=== PATIENT | female | born 1980 | race African-American/Black ===

== ENCOUNTER 2018-10-22 03:13 | Observation (INO) | payer OTHER, SELFPAY ==
[2018-10-22 03:58] LABS: INR-International Normal Ratio 1.1; PTT 24.2 SEC (22.9-36.1); Prothrombin Time 13.7 SEC (12.0-14.7)
[2018-10-22 04:08] LABS: Band 2 % (5-11); Hemoglobin 10.5 g/dL (12.0-16.0); Hypochromia SLIGHT = 6-15 cells (100X) (0-5/hpf); Lymphocytes 51 % (21-51); MDiff Complete? YES; Mean Corpuscular Hemoglobin 22.3 pg (27.0-31.0); Mean Corpuscular Volume 74.3 fL (78.0-98.0); Mean Platelet Volume 9.3 fL (7.4-10.4); Microcytosis SLIGHT = 6-15 cells (100X) (0-5/hpf); Monocytes 6 % (0-10); Neutrophil 41 % (42-75); Platelet Count 286 thou/uL (130-400); Platelet Morphology Comment Appears Adequate; RBC Distribution Width 16.1 % (11.5-14.5); White Blood Cell (WBC) Count 7.2 thou/uL (4.8-10.8)
[2018-10-22 04:13] LABS: ALT (SGPT) 11 U/L (8-55); AST (SGOT) 24 U/L (5-34); Albumin 3.8 g/dL (3.5-5.0); Alkaline Phosphatase 74 U/L (40-150); Anion Gap 13 mmol/L (10-20); BUN (Urea Nitrogen) 8 mg/dL (7.0-18.7); Bilirubin, Total 0.2 mg/dL (0.2-1.2); CK (CPK) 174 U/L (29-168); Calc. Creatinine Clearance 0 mL/min (70-130); Calcium 8.9 mg/dL (7.8-10.44); Carbon Dioxide 23 mmol/L (22-29); Chloride 105 mmol/L (98-107); Estimated GFR-MDRD Greater than 90; Globulin 3.8 g/dL (2.4-3.5); Glucose 77 mg/dL (70-105); Potassium 4.9 mmol/L (3.5-5.1); Protein, Total 7.6 g/dL (6.0-8.3); Sodium 136 mmol/L (136-145)
[2018-10-22] MEDS ORDERED: Aspirin Chewable 81 MG TAB ONE (04:49)
[2018-10-22] MEDS ORDERED: Acetaminophen 325 MG TAB PO PRN (08:26)
[2018-10-22] MEDS ORDERED: hydrALAZINE 20 MG/ML VIAL SLOW IVP PRN (08:26)
[2018-10-22 08:42] LABS: BHCG - Serum Negative (NEGATIVE); Pregs Control Background? CLEAR/WHITE (CLR/WHITE); Pregs Control Bar Appear? YES (CONTROL BAR)
--- NOTE | 2018-10-22 08:51 | CT ---
CTA HEAD WITH IV CONTRAST AND 3D REFORMATTED IMAGING CTA NECK WITH IV CONTRAST AND 3D REFORMATTED IMAGING: Date: 10/22/18 INDICATION: Sudden onset left shoulder numbness and left-sided weakness at 2200 hours last evening. COMPARISON: Noncontrast CT of brain performed earlier at 0351 hours on 10/22/18. FINDINGS: CTA HEAD: No hemodynamically significant stenosis, occlusion, or aneurysmal formation is evident. No area of ab normal enhancement evident. No midline shift noted. CTA NECK: No hemodynamically significant stenosis, occlusion, or aneurysmal formation is evident. There is slight prominence of the palatine tonsils and lingual tonsils, nonspecific. There are some m ildly prominent lymph nodes within Level I and Level II positions, nonspecific. One of the more promi nent is seen within the right Level II position measuring 1.2 cm. Similar appearing enlarged left Lev el II lymph node is seen measuring 1.4 cm. There are a few shotty appearing left Level III position l ymph nodes. There is a mildly prominent lymph node seen within the right occipital region measuring 6 .0 mm. The parotid, submandibular, and thyroid gland is normal appearing. A few mildly prominent intr aparotid lymph nodes. The visualized upper mediastinum demonstrates slightly prominent thymus. Visualized right upper lobe demonstrates some hazy opacity within the right upper lobe. There is also some hazy perihilar opacity within the left upper lobe. No acute osseous abnormality is evident. IMPRESSION: 1. No hemodynamically significant stenosis, occlusion, or aneurysm formation demonstrated. 2. Nonspecific mildly prominent palatine, lingual, and upper neck lymph nodes, in addition to some m ild perihilar ground-glass opacities within both upper lobes can be seen with viral illnesses such as within the case of upper respiratory tract infection. Malignancy not excluded. Recommend correlatio n. Findings concerning the CTA of the head and neck were called to Dr. Wellington at 0440 hours and repeat call provided at 0444 hours for the findings suspicious for possible viral illness. CODE CR. POS: ERIC
--- NOTE | 2018-10-22 08:54 | CT ---
PRELIMINARY REPORT/[facility]/EMERGENCY AFTER HOURS PROCEDURE: Addendum created by Izaiah Tolentino MD on 10/22/2018 4:09 AM Central Time ( & [place]) Findings discu ssed with VISH KIMBROUGH MD at time of interpretation. Initial Report created on 10/22/2018 3:59 AM Nathalie tral Time ([place] & [place]) EXAM: CT Head Without Contrast EXAM DATE/TIME: 10/22/2018 3:51 AM CLINICAL HISTORY: 38 years old, female; Weakness, extremity; Left; Patient HX: 38 y/o F presents to ED C/O sudden onset of L shoulder numbness and L sided weakness at 2200 last night. TECHNIQUE: Imaging protocol: Axial computed tomography images of the head without contrast. Other technique: STROKE PROTOCOL was implemented. COMPARISON: No relevant prior studies available. FINDINGS: Brain: Normal. No hemorrhage. Unremarkable white matter. No mass effect. Ventricles: Normal. No ventriculomegaly. Bones/joints: Unremarkable. No acute fracture. Sinuses: Visualized sinuses are unremarkable. No fluid levels. Mastoid air cells: Visualized mastoid air cells are well aerated. No mastoid effusion. Soft tissues: Unremarkable. IMPRESSION: No acute intracranial abnormality. Thank you for allowing us to participate in the care of your patient. Dictated and Authenticated by: Izaiah Tolentino MD 10/22/2018 3:59 AM Central Time ( & [place]) FINAL REPORT EMERGENCY AFTER HOURS CT BRAIN: Date: 10/22/18 IMPRESSION: I agree with the preliminary report provided by [facility]. No acute intracranial abnormality demonstrated. POS: BH
[2018-10-22] MEDS ORDERED: Furosemide 20 MG TAB PO SCH (09:00)
[2018-10-22] MEDS ORDERED: Furosemide 40 MG TAB ONE (09:04)
--- NOTE | 2018-10-22 09:05 | HP ---
PRIMARY CARE PROVIDER: None. CHIEF COMPLAINT: Weakness. HISTORY OF PRESENT ILLNESS: A 38-year-old female with history of cardiomyopathy, and systolic heart failure from three years ago, who presents to the emergency room with a complaint of new onset left arm and torso weakness and numbness. The patient reports onset around 2200 hours, denies any precipitating factors or relieving factors. She also denies any prior history of similar symptoms. She has been having a toothache on the left lower jaw and taking Tylenol - 3 tablets yesterday for three doses and denies any change in the tooth pain. She attributed the left-sided symptoms to the toothache; however, given that the symptoms persisted, she presented to the emergency room. The patient describes the numbness as her left arm, her left chest and back, as well as weakness, stating that she could barely move her arm last night. She denies any involvement of her left leg, denies any difficulty with her vision, speech or swallowing, denies any symptoms on the right side. She reports that this is all improved significantly, there is some residual sensation of weakness in her left arm. She also notes that she has chest pain on arrival that she describes as in the left and center of her chest, a stabbing quality and intermittent that lasted for minutes and has since resolved. She also had a headache that has resolved. The patient does have a history of systolic heart failure, hospitalized here three years ago and discharged to home with beta-socrates, RHONDA inhibitor, and a LifeVest as her EF was estimated at that time to be 30% to 35%. The patient does not remember when her last echocardiogram, she is followed up in the Heart failure Clinic and states that her medications are adjusted there. She reports she stopped the life vest after the recommended 6 months. She is on carvedilol twice daily, furosemide twice daily, states she does not take the RHONDA inhibitor secondary to headaches. In the emergency room, the patient's presentation concerning for an ischemic stroke, she received aspirin 324 mg and hospitalist called for admission. 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 She is not on any contraception. ALLERGIES: NO KNOWN DRUG ALLERGIES. CURRENT MEDICATIONS: 1. Carvedilol 25 mg b.i.d. 2. Furosemide 40 mg b.i.d. 3. Lisinopril. She reports taking it maybe monthly when she feels stressed, secondary it a causing a headache. PAST MEDICAL HISTORY: 1. Systolic heart failure diagnosed three years ago. 2. Hypertension. 3. Chronic anemia. PAST SURGICAL HISTORY: 1. Cholecystectomy. 2. C-sections. SOCIAL HISTORY: The patient lives with her , who is her surrogate decision maker, and she is a full code. She denies any nicotine or drug use, she uses alcohol every other week and states about 3 to 4 drinks when she does. FAMILY HISTORY: Her mother has multiple medical problems including stroke. REVIEW OF SYSTEMS: Positive for headaches, chest pain, and her symptoms on arrival. Negative for vision changes, speech changes, swallowing difficulty, or any involvement of the left leg or right side, denies any coughing, urine changes, nausea, vomiting, abdominal pain. All remaining review of systems are reviewed and negative. PHYSICAL EXAMINATION: VITAL SIGNS: Blood pressure 127/69, pulse 77, respirations 18, temperature 97.9 , saturation is 100% on room air. GENERAL: Awake, alert, responsive, in no apparent distress. Able to speak in full sentences. HEENT: Her pupils are equal and round. Extraocular movements are intact. Oral mucosa is pink and moist. Her left lowermost posterior tooth, she reports tenderness around, and there are no changes in the gum, no fluctuance of the gums. NECK: Supple, nontender. LYMPHATICS: No palpable cervical or supraclavicular lymphadenopathy. LUNGS: Clear to auscultation bilateral. No audible wheezing, rhonchi or rales. HEART: Normal S1, S2. Regular rate and rhythm. No significant murmur. ABDOMEN: Soft with present bowel sounds. Nontender, nondistended. EXTREMITIES: There is no pitting edema, clubbing, or cyanosis. NEURO: Lower and upper extremity strength is 5/5 bilateral. Cranial nerves 2 through 12 are intact. No gross deficits. PSYCH: The patient is euthymic. VASCULAR: 2+ dorsalis pedis pulses. CARDIOVASCULAR STUDIES: EKG, personally reviewed sinus rhythm, normal axis, normal intervals, no ST changes. IMAGING STUDIES: CT of the brain and CT [place] angio are not resulted yet. On my review of the CT of the brain, there is no gross abnormality. LABORATORY DATA: CBC; 7.2, 10.5, 34.9, 286. INR 1.1. Renal panel; 136, 4.9, 105, 23, 8, 0.79, 77. LFTs are normal. CK 174. Troponin negative. IMPRESSION: 1. New onset left upper extremity weakness and paresthesias in a patient at high risk given history of systolic heart failure, improved. 2. Chronic systolic heart failure. No signs of an acute exacerbation, unknown current status of her cardiac function. 3. Hypertension, unknown control. 4. Tooth pain. 5. Anemia, chronic and mild. 6. Obesity PLAN: 1. Observation status in the hospital. 2. Ischemic stroke evaluation to include echocardiogram, MRI, Neuro consult, and Stroke team consult. 3. Continuing the daily aspirin with her next dose tomorrow. 4. Continuing for Coreg and furosemide given the history of systolic heart failure. The patient is compensated currently. We will place hold parameters on both medications to avoid significant hypotension. 5. Monitoring on telemetry. 6. test. 7. Patient will need follow up with a dentist regarding the tooth pain. The gums do not appear infected. 8. DVT prophylaxis. The patient is ambulatory. 9. GI prophylaxis not indicated. She will be written for heart-healthy, fluid- restricted diet. 10. Code status is full. Surrogate decision maker is her . The patient is at high risk given age comorbidities and current presentation. Reviewed the plan of care with the patient. No questions or further needs at the end of evaluation. Job ID: [id number] MTDD
[2018-10-22 10:25] LABS: Amphetamine Not Detected (NotDetected); Barbiturates Screen Not Detected (NotDetected); Benzodiazepine Screen Not Detected (NotDetected); Cocaine Metabolite Screen Not Detected (NotDetected); Medtox Control Line Valid? VALID (VALID); Medtox Reader # READER 1; Methadone Not Detected (NotDetected); Methamphetamine Not Detected (NotDetected); Opiate Screen Not Detected (NotDetected); Oxycodone Screen Not Detected (NotDetected); Phencyclidine (PCP) Not Detected (NotDetected); THC/Cannabinoid Screen Detected (NotDetected); Tricyclic Screen Not Detected (NotDetected)
--- NOTE | 2018-10-22 10:25 | MRI ---
MRI Brain WO Con: 10/22/2018 8:27 AM CLINICAL HISTORY: Left-sided numbness. TECHNIQUE: Multiplanar, multisequence images were obtained of the brain. COMPARISON: CT of the brain dated October 22, 2018 FINDINGS: Extra axial spaces: Normal in size and morphology for the patient's age. Hemorrhage: None. Ventricular system: Normal in size and morphology for the patient's age. Basal cisterns: Normal. Cerebral parenchyma: Normal. Midline shift: None. Cerebellum: Normal. Brainstem: Normal. OTHER: Calvarium: Normal. Vascular system: Normal. Visualized Paranasal sinuses: Clear. Visualized Orbits: Normal. Visualized upper cervical spine: Normal. Sella and skull base: Normal. IMPRESSION: No acute intracranial abnormality
[2018-10-22] MEDS ORDERED: Iopamidol 370 76% 100 ML VIAL ONE (12:00)
[2018-10-22] MEDS: Furosemide 40 MG TAB PO SCH (13:03)
[2018-10-22 13:17] VITALS: BMI 55.4
[2018-10-22] MEDS: traMADol HCl 50 MG TAB PO PRN (18:04)
[2018-10-23 05:15] LABS: Anion Gap 10 mmol/L (10-20); BUN (Urea Nitrogen) 9 mg/dL (7.0-18.7); Calc. Creatinine Clearance 167 mL/min (70-130); Carbon Dioxide 27 mmol/L (22-29); Cardiac Risk 3.1 (Less than 4.5); Chloride 101 mmol/L (98-107); Cholesterol 141 mg/dl (< 200 Desired); Estimated GFR-MDRD Greater than 90; Glucose 83 mg/dL (70-105); HDL Cholesterol 46 mg/dL (>60 Neg Risk); LDL Cholesterol, Calculated 78 mg/dL; Potassium 4.1 mmol/L (3.5-5.1); Sodium 134 mmol/L (136-145); Triglycerides 85 mg/dL (Less than 150)
[2018-10-23 05:54] LABS: Eosinophils 2 % (0-10); Hemoglobin 10.6 g/dL (12.0-16.0); Lymphocytes 49 % (21-51); MDiff Complete? YES; Mean Corpuscular HGB CONC 30.9 g/dL (32.0-36.0); Mean Corpuscular Hemoglobin 22.8 pg (27.0-31.0); Mean Corpuscular Volume 73.9 fL (78.0-98.0); Monocytes 3 % (0-10); Neutrophil 44 % (42-75); Platelet Count 193 thou/uL (130-400); Platelet Morphology Comment Appears Adequate; RBC Distribution Width 16.5 % (11.5-14.5); Red Blood Cell (RBC) Count 4.63 mill/uL (4.20-5.40); White Blood Cell (WBC) Count 7.5 thou/uL (4.8-10.8)
[2018-10-23] MEDS ORDERED: Carvedilol 25 MG TAB PO SCH (08:00)
[2018-10-23] MEDS: Furosemide 40 MG TAB PO SCH ×2 (08:34→14:30)
[2018-10-23] MEDS ORDERED: Aspirin 325 mg Enteric Coated Tablet PO SCH (09:00)
--- NOTE | 2018-10-23 10:17 | PDOC.PN ---
- Subjective Encounter Start Date: 10/23/18 (f/u weakness) Encounter Start Time: 10:13 Subjective: Pt denies any complaints or concerns today. Reports her strength is normal -: denies any vision changes/speech changes/dyspnea -: tooth pain is intermittent - Objective Resuscitation Status - Order Detail: 10/22/18 08:26 Resuscitation Status Routine Resuscitation Status: FULL: Full Resuscitation Vital Signs & Weight: Vital Signs (12 hours) Temp Pulse Resp BP Pulse Ox 10/23/18 08:00 98.3 F 73 18 118/82 94 L 10/23/18 04:00 98.6 F 82 20 152/58 H 95 10/23/18 00:00 98.8 F 87 16 119/58 L 98 Weight Weight 256 lb 4 oz Result Diagrams: 10/23/18 04:07 10/23/18 04:08 Additional Labs: Accuchecks 10/22/18 03:37 POC Glucose 94 EKG Reviewed by me: Yes (tele - sinus 80-90's) Phys Exam - Physical Examination Constitutional: NAD perrl Respiratory: no wheezing, no rales, no rhonchi, clear to auscultation bilateral Cardiovascular: RRR, no significant murmur Gastrointestinal: soft, non-tender, no distention, positive bowel sounds Musculoskeletal: no edema Neurological: non-focal, moves all 4 limbs Psychiatric: normal affect Dx/Plan (1) TIA (transient ischemic attack) Code(s): G45.9 - TRANSIENT CEREBRAL ISCHEMIC ATTACK, UNSPECIFIED Status: Resolved (2) Chronic systolic heart failure Code(s): I50.22 - CHRONIC SYSTOLIC (CONGESTIVE) HEART FAILURE Status: Chronic (3) Anemia Code(s): D64.9 - ANEMIA, UNSPECIFIED Status: Chronic Qualifiers: Anemia type: unspecified type Qualified Code(s): D64.9 - Anemia, unspecified (4) Hypertension Code(s): I10 - ESSENTIAL (PRIMARY) HYPERTENSION Status: Chronic (5) cardiomyopathy Code(s): O90.3 - PERIPARTUM CARDIOMYOPATHY Status: Chronic - Plan * Weakness resolved - c/w TIA as MRI negative * Neuro consult * continue aspirin * echo pending * HTN - controlled * Chronic systolic heart failure -compensated * continue home meds * dental pain - needs outpatient f/u * non-specific lymphadenopathy - needs outpatient f/u * dvt prophy - ambulatory * gi prophy - not indicated. * * anticipate d/c to home after echo and Neuro recs
[2018-10-23 16:22] VITALS: BP 109/66; TEMP 98.4
[2018-10-23] MEDS ORDERED: Ketorolac Tromethamine 10 MG TAB PO PRN (16:52)
[2018-10-23] MEDS ORDERED: diphenhydrAMINE 25 MG CAP PO PRN (16:52)
[2018-10-23] MEDS: traMADol HCl 50 MG TAB PO PRN (17:46)
--- NOTE | 2018-10-24 02:43 | DIS ---
DATE OF ADMISSION: 10/22/2018 DATE OF DISCHARGE: 10/23/2018 CONSULTANTS: Dr. Hale of Teleneurology. MEDICATIONS: Reconciled at discharge. New medication are: 1. Aspirin 81 mg daily. 2. Ketorolac 10 mg p.o. one time along with 25 mg benadryl p.o. one time at onset of a migraine. To use no more than weekly. Medications to resume: 1. Carvedilol 25 mg b.i.d. 2. Furosemide 40 mg b.i.d. at 9:00 a.m. and 2:00 p.m. 3. Lisinopril 5 mg daily. Although, of note, the patient does not take this regularly and recommend that she follow up with the [facility] Failure [facility] about that. FINAL DIAGNOSIS: 1. 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 2. Non-specific lymphadenopathy and ground glass opacities on CT-angiogram which need further evaluation in the outpatient setting. SECONDARY DIAGNOSES: 1. Chronic systolic and diastolic heart failure, compensated. EF estimated at 40-45%. 2. Hypertension. 3. Chronic anemia. 4. Morbid obesity. 5. Tooth pain. HISTORY OF PRESENT ILLNESS: Ms. Long is a 38-year-old female, who presented to the emergency room with a complaint of both left lower jaw pain as well as left-sided weakness and numbness in her arm, chest and back. This was new in onset without any precipitating or relieving factors. Please see H and P for full details. HOSPITAL COURSE: The patient was monitored on telemetry and maintained a sinus rhythm. She underwent an MRI that was negative for any acute process. She had a negative CT scan and CT angiogram. There are some nonspecific findings on the CT angiogram that will need further evaluation in the outpatient setting. Her symptoms had completely resolved overnight. The patient was evaluated by Dr. Hale today by Teleneurology with a diagnosis of hemiplegic migraine and recommendation for Toradol 10 mg oral along with Benadryl at the onset of a migraine for treatment. Discussed with patient that this should be used no more than weekly given that it is an NSAID and she does have chronic systolic heart failure. Recommend that she follow up either with Dr. Hale or her newly established primary care provider for further discussion. The patient is overall feeling well, and now is asymptomatic and meets criteria for discharge to home. She does have pain in the left lower jaw on one of her teeth with recommendation for followup with a dentist. PHYSICAL EXAMINATION: Please see the note on the chart from today. MORATAYA FINDINGS AND TEST RESULTS: CBC; 7.5, 10.6, 34.2, 193. INR 1.1. Chemistry; 134, 4.1, 101, 27, 9, 0.83, 83. Triglycerides 85, cholesterol 141, LDL 78, HDL 46. test negative. Total bilirubin 0.2, AST 24, ALT 11, alkaline phosphatase 74, total protein 7.6, albumin 3.8. Urine drug screen positive for cannabinoids. Echocardiogram with an EF of 40% to 45%, grade 2 of 3 diastolic dysfunction, dilated left ventricle. Brain MRI, no acute abnormality. CT angiogram with [place] with contrast shows no hemodynamically significant stenosis, occlusion, or aneurysm. Nonspecific mildly prominent palatine lingual and upper neck lymph nodes in addition to some mild perihilar ground- glass opacities within upper lobes which can be seen with viral illnesses, malignancy not excluded. DIET: Heart healthy, fluid restricted as previously directed by the Heart Failure Clinic. ACTIVITY: As tolerated. FOLLOWUP: 1. Followup has been arranged with a primary care provider for the patient, Nurse Practitioner, Ariana Rocha, on October 25 at 3 p.m. 2. [facility] Clinic as previously directed. 3. Dr. Hale, Neurology, if the headaches persist. CODE STATUS: Full DISCHARGE DISPOSITION: Home Reviewed with the patient this hospitalization, the findings, the medications, the importance of followup, and to seek care precautions. There were no questions or further needs at the end of evaluation. TIME SPENT: Total time coordinating discharge is 35 minutes. Job ID: [id number] [facility]
[2018-10-24] MEDS ORDERED: Aspirin Chewable 81 MG TAB PO SCH (09:00)
--- NOTE | 2018-10-28 16:36 | EKG ---
Test Reason : Blood Pressure : / mmHG Vent. Rate : 081 BPM Atrial Rate : 081 BPM P-R Int : 156 ms QRS Dur : 080 ms QT Int : 376 ms P-R-T Axes : 042 013 018 degrees QTc Int : 436 ms Normal sinus rhythm Normal ECG Confirmed by VISH KIMBROUGH D.O. ([id number]), market editor ODIN PRESTON ([id number]) on 10/28/2018 4:35:39 PM Referred By: Confirmed By:VISH KIMBROUGH D.O.
== END 2018-10-23 18:50 | disposition home or self-care (01) ==
LOC: ERS 03:13 → ERHOLD 05:28 → 2SE 12:36
PROVIDERS: ADMIT Internal Medicine; ATTEND Internal Medicine
DX: G43.409 Hemiplegic migraine, not intractable, without status migrainosus (principal); R20.0 Anesthesia of skin; R07.9 Chest pain, unspecified; I11.0 Hypertensive heart disease with heart failure; I50.42 Chronic combined systolic (congestive) and diastolic (congestive) heart failure; D64.9 Anemia, unspecified; E66.01 Morbid (severe) obesity due to excess calories; Z68.43 Body mass index [BMI] 50.0-59.9, adult; Z79.899 Other long term (current) drug therapy
CPT/HCPCS: 36415; 36416; 70450; 70496; 70498; 70551; 80048; 80053; 80061; 80306; 82550; 84484; 84703; 85025; 85610; 85730; 93005; 93306; G0378; Q0163; Q9967

== ENCOUNTER 2021-04-20 23:56 | Emergency (ER) | payer SELFPAY ==
[2021-04-21] MEDS ORDERED: Ibuprofen 800 MG TAB ONE (00:21)
[2021-04-21] MEDS ORDERED: Acetaminophen 500 MG TAB ONE (00:21)
[2021-04-21 17:43] LABS: SARS-CoV-2 PCR by NAA DETECTED (NotDetected)
== END 2021-04-21 00:58 | disposition home or self-care (01) ==
LOC: ERS 23:56
DX: U07.1 COVID-19 (principal); I11.0 Hypertensive heart disease with heart failure; I50.9 Heart failure, unspecified; Z79.899 Other long term (current) drug therapy
CPT/HCPCS: 99283; U0003; U0005